=== PATIENT | female | born 1975 | race Caucasian/White ===

== ENCOUNTER 2016-11-20 15:55 | Emergency (ER) | payer OTHER ==
[2016-11-20] MEDS ORDERED: KETOROLAC TROMETHAMINE INJ/PF 30 MG/1 ML SDV IV ONE (16:56)
--- NOTE | 2016-11-20 17:00 | ER Document Report ---
ED Medical Screen (RME) - General Chief Complaint: Abdominal Pain Stated Complaint: ABDOMINAL PAIN Notes: I briefly seen and evaluated this patient in my role as physician in triage. I have initiated orders based on this initial evaluation. Please see my colleague' s documentation for complete history, physical, management, diagnosis, and ultimate disposition. My brief evaluation: Patient presents from her doctor's office for evaluation for lower abdominal tenderness. The patient says that the symptoms have been there for about 6 months but have worsened and now she has stabbing pains in the right lower quadrant. The patient said her doctor evaluated her abdomen said she needed to go to the hospital for imaging. The patient indicates that her doctor told her that she consult with the emergency department. On exam, patient alert and oriented chest signs stable patient is afebrile nontoxic appearing. Chest clear and equal bilaterally. Heart rate normal no murmurs. Abdomen is soft but there is tenderness in the entire lower abdomen. Bowel sounds are present. Medical decision making: Patient is status post hysterectomy with lower abdominal pain chronic for 6 months with increasing severity and no prior workup. Sent by her doctor today for imaging. We will initiate abdominal pain workup including CT. TRAVEL OUTSIDE OF THE [place] IN LAST 30 DAYS: No - Related Data Allergies/Adverse Reactions: No Known Allergies Allergy (Unverified 11/20/16 16:52) Past Medical History Renal/ Medical History: Denies: Hx Peritoneal Dialysis Physical Exam - Vital signs Vitals: Temp Pulse Resp BP Pulse Ox 99.1 F 89 18 119/81 97 11/20/16 16:03 11/20/16 16:03 11/20/16 16:03 11/20/16 16:03 11/20/16 16:03 Course - Vital Signs Vital signs: Temp Pulse Resp BP Pulse Ox 99.1 F 89 18 119/81 97 11/20/16 16:03 11/20/16 16:03 11/20/16 16:03 11/20/16 16:03 11/20/16 16:03
[2016-11-20 17:31] LABS: ABSOLUTE EOSINOPHILS # (AUTO) 0.1 10^3/uL (0.0-0.6); ABSOLUTE LYMPHOCYTES (AUTO) 3.2 10^3/uL (0.5-4.7); ABSOLUTE MONOCYTES (AUTO) 0.9 10^3/uL (0.1-1.4); ABSOLUTE NEUT (AUTO) 3.3 10^3/uL (1.7-8.2); BASOPHILS % (AUTO) 0.6 % (0-2); EOSINOPHILS % (AUTO) 0.8 % (0-6); HEMATOCRIT 38.3 % (36.0-47.0); HEMOGLOBIN 13.3 g/dL (12.0-15.5); HGB HCT DIFFERENCE 1.6; LYMPHOCYTES % (AUTO) 42.8 % (13-45); MEAN CORPUSCULAR HEMOGLOBIN 33.1 pg (27.0-33.4); MEAN CORPUSCULAR HGB CONC 34.6 g/dL (32.0-36.0); MEAN CORPUSCULAR VOLUME 96 fl (80-97); MONOCYTES % (AUTO) 12.1 % (3-13); RED BLOOD COUNT 4.01 10^6/uL (3.72-5.28); SEGMENTED NEUTROPHILS % (AUTO) 43.7 % (42-78); WHITE BLOOD COUNT 7.5 10^3/uL (4.0-10.5)
[2016-11-20 17:35] LABS: APPEARANCE,URINE CLEAR; BILIRUBIN,URINE NEGATIVE (NEGATIVE); GLUCOSE, URINE NEGATIVE (NEGATIVE); KETONES,URINE 20 mg/dL (NEGATIVE); LEUKOCYTE ESTERASE,URINE SMALL (NEGATIVE); NITRITE,URINE NEGATIVE (NEGATIVE); PROTEIN,URINE NEGATIVE (NEGATIVE); URINE SPECIFIC GRAVITY 1.012; UROBILINOGEN,URINE NEGATIVE mg/dL (<2.0)
[2016-11-20 17:50] LABS: ALANINE AMINOTRANSFERASE 41 U/L (9-52); ALBUMIN 4.7 g/dL (3.5-5.0); ALKALINE PHOSPHATASE 81 U/L (38-126); ANION GAP 12 (5-19); ASPARTATE AMINO TRANSFERASE 37 U/L (14-36); BILIRUBIN,DIRECT 0.3 mg/dL (0.0-0.4); BLOOD UREA NITROGEN 12 mg/dL (7-20); CALCIUM 9.7 mg/dL (8.4-10.2); CARBON DIOXIDE 28 mmol/L (22-30); CHLORIDE 101 mmol/L (98-107); CREATININE RESULT 0.72 mg/dL (0.52-1.25); GLUCOSE 122 mg/dL (75-110); POTASSIUM 3.8 mmol/L (3.6-5.0); TOTAL PROTEIN 7.5 g/dL (6.3-8.2)
--- NOTE | 2016-11-20 19:53 | ER Document Report ---
ED General - General Chief Complaint: Abdominal Pain Stated Complaint: ABDOMINAL PAIN Mode of Arrival: Ambulatory Information source: Patient Notes: 41-year-old female history of IBS presents with complaints of chronic abdominal pain patient denies any fevers or new concerns. Patient notes this is the first time she was seen by her new primary care physician and was sent in for evaluation. TRAVEL OUTSIDE OF THE [place] IN LAST 30 DAYS: No - HPI Onset: Other Onset/Duration: Persistent Quality of pain: Cramping Severity: Mild Pain Level: 1 Associated symptoms: Other Exacerbated by: Denies Relieved by: Denies Similar symptoms previously: Yes Recently seen / treated by doctor: Yes - Related Data Allergies/Adverse Reactions: No Known Allergies Allergy (Unverified 11/20/16 16:52) Past Medical History - Social History Smoking Status: Never Smoker Cigarette use (# per day): No Chew tobacco use (# tins/day): No Smoking Education Provided: No Frequency of alcohol use: None Drug Abuse: None Family History: Reviewed & Not Pertinent Patient has suicidal ideation: No Patient has homicidal ideation: No Renal/ Medical History: Denies: Hx Peritoneal Dialysis Review of Systems - Review of Systems Notes: REVIEW OF SYSTEMS: CONSTITUTIONAL : Denies fever, chills, or sweats. Denies recent illness. EENT: Denies eye, ear, throat, or mouth pain or symptoms. Denies nasal or sinus congestion or discharge. Denies throat, tongue, or mouth swelling or difficulty swallowing. CARDIOVASCULAR: Denies chest pain. Denies palpitations or racing or irregular heart beat. Denies ankle edema. RESPIRATORY: Denies cough, cold, or chest congestion. Denies shortness of breath, difficulty breathing, or wheezing. GASTROINTESTINAL: Admits to abdominal pain GENITOURINARY: Denies difficulty urinating, painful urination, burning, frequency, blood in urine, or discharge. FEMALE GENITOURINARY: Denies vaginal bleeding, heavy or abnormal periods, irregular periods. Denies vaginal discharge or odor. MUSCULOSKELETAL: Denies back or neck pain or stiffness. Denies joint pain or swelling. SKIN: Denies rash, lesions or sores. HEMATOLOGIC : Denies easy bruising or bleeding. LYMPHATIC: Denies swollen, enlarged glands. NEUROLOGICAL: Denies confusion or altered mental status. Denies passing out or loss of consciousness. Denies dizziness or lightheadedness. Denies headache. Denies weakness or paralysis or loss of use of either side. Denies problems with gait or speech. Denies sensory loss, numbness, or tingling. Denies seizures. PSYCHIATRIC: Denies anxiety or stress. Denies depression, suicidal ideation, or homicidal ideation. ALL OTHER SYSTEMS REVIEWED AND NEGATIVE. Dictation was performed using [employer] voice recognition software PHYSICAL EXAMINATION: GENERAL: Well-appearing, well-nourished and in no acute distress. HEAD: Atraumatic, normocephalic. EYES: Pupils equal round and reactive to light, extraocular movements intact, conjunctiva are normal. ENT: Nares patent, oropharynx clear without exudates. Moist mucous membranes. NECK: Normal range of motion, supple without lymphadenopathy LUNGS: Breath sounds clear to auscultation bilaterally and equal. No wheezes rales or rhonchi. HEART: Regular rate and rhythm without murmurs ABDOMEN: Soft, mildly tender in the suprapubic bilateral lower quadrants no rebound or guarding Female : deferred Musculoskeletal: Normal range of motion, no pitting or edema. No cyanosis. NEUROLOGICAL: Cranial nerves grossly intact. Normal speech, normal gait. Normal sensory, motor exams PSYCH: Normal mood, normal affect. SKIN: Warm, Dry, normal turgor, no rashes or lesions noted. Physical Exam - Vital signs Vitals: Temp Pulse Resp BP Pulse Ox 99.1 F 89 18 119/81 97 11/20/16 16:03 11/20/16 16:03 11/20/16 16:03 11/20/16 16:03 11/20/16 16:03 Course - Re-evaluation Re-evalutation: 11/20/16 19:52 Patient herself is very aware of her chronic pain, states that this is similar to all her previous pains, denies any new symptoms. Patient herself is unsure why she was sent in. Nonetheless evaluation was performed i was noted patient will be discharged home on bentyl. possible bursitis is noted patient will be given orth[facility] her request After performing a Medical Screening Examination, I estimate there is LOW risk for ACUTE APPENDICITIS, BOWEL OBSTRUCTION, ACUTE CHOLECYSTITIS, PERFORATED DIVERTICULITIS, INCARCERATED HERNIA, PANCREATITIS, PELVIC INFLAMMATORY DISEASE, PERFORATED ULCER, ECTOPIC , or TUBO-OVARIAN ABSCESS, thus I consider the discharge disposition reasonable. Also, there is no evidence or peritonitis , sepsis, or toxicity. I have reevaluated this patient multiple times and no significant life threatening changes are noted. The patient and I have discussed the diagnosis and risks, and we agree with discharging home with close follow-up with the understanding that symptoms and presentations can change. We also discussed returning to the Emergency Department immediately if new or worsening symptoms occur. We have discussed the symptoms which are most concerning (e.g., bloody stool, fever, changing or worsening pain, vomiting) that necessitate immediate return. - Vital Signs Vital signs: Temp Pulse Resp BP Pulse Ox 99.1 F 89 18 119/81 97 11/20/16 16:03 11/20/16 16:03 11/20/16 16:03 11/20/16 16:03 11/20/16 16:03 - Laboratory Result Diagrams: 11/20/16 17:15 11/20/16 17:15 Laboratory results interpreted by me: 11/20/16 11/20/16 17:15 17:15 Glucose 122 H AST 37 H Urine Ketones 20 H Ur Leukocyte Esterase SMALL H - Diagnostic Test Radiology reviewed: Image reviewed, Reports reviewed Discharge - Discharge Clinical Impression: adventitial bursitis Abdominal pain Qualifiers: Abdominal location: lower abdomen, unspecified Qualified Code(s): R10.30 - Lower abdominal pain, unspecified IBS (irritable bowel syndrome) Qualifiers: Irritable bowel syndrome type: with diarrhea Qualified Code(s): K58.0 - Irritable bowel syndrome with diarrhea Condition: Stable Disposition: HOME, SELF-CARE Instructions: Abdominal Pain ([facility]) Additional Instructions: Follow up with your physician tomorrow for further care or return to the ED IMMEDIATELY if symptoms worsen or new concerns occur. If you cannot afford to follow up with your primary care physician a list of low cost clinics have been provided at the end of your discharge papers as well. Prescriptions: Dicyclomine HCl [Bentyl 20 mg Tablet] 20 mg PO QID #40 tablet
[2016-11-20 20:04] VITALS: BP 111/75
== END 2016-11-20 20:04 | disposition home or self-care (01) ==
LOC: ER 15:55
DX: M71.8 Other specified bursopathies (principal); K58.0 Irritable bowel syndrome with diarrhea; G89.29 Other chronic pain; R10.30 Lower abdominal pain, unspecified
CPT/HCPCS: 99284; 96374; 36415; 83690; 85025; 80053; 81001; 74177; J1885

== ENCOUNTER → 2017-09-10 | Outpatient (CLI) | payer OTHER ==
--- NOTE | 2017-09-28 17:00 | WOMENS IMAGING REPORT ---
EXAM DESCRIPTION: BILAT SCREENING MAMMO W/CAD COMPLETED DATE/TIME: 09/10/2017 7:27 am REASON FOR STUDY: SCREENING MAMMO Z12.31 ENCNTR SCREEN MAMMOGRAM FOR MALIGNANT NEOPLASM OF MONIQUE COMPARISON: No previous TECHNIQUE: Standard craniocaudal and mediolateral oblique views of each breast recorded using digita l acquisition. LIMITATIONS: None. FINDINGS: No masses, calcifications or architectural distortion. No areas of suspicion. Read with the assistance of CAD. .[facility] - R2 Cenova Version 1.3 .[facility] - R2 Cenova Version 1.[address] - R2 Cenova Version 2.4 .[facility] - R2 Cenova Version 2.4 .[facility] - R2 Drupal Programmer Version 9.2 IMPRESSION: NORMAL MAMMOGRAM. BIRADS 1. BREAST DENSITY: d. The breasts are extremely dense, which lowers the sensitivity of mammography. BIRAD: 1 NEGATIVE RECOMMENDATION: ROUTINE SCREENING Please continue yearly screening in September 2018. Please consider bilateral screening tomosynthesis given extremely dense fibroglandular tissue COMMENT: The patient has been notified of the results by letter per [place] requirements. Additional no tification policies are in place for contacting patient with suspicious or incomplete findings. Quality ID #[id number]: The [employer] recommends an annual screening mammogram for women aged 40 years or over. This facility utilizes a reminder system to ensure that all patients receive reminder letters, and/or direct phone calls for appointments. This includes reminders for routine scr eening mammograms, diagnostic mammograms, or other Breast Imaging Interventions when appropriate. Th is patient will be placed in the appropriate reminder system. The [employer] (ACR) has developed recommendations for screening MRI of the breast s in certain patient populations, to be used in conjunction with mammography. Breast MRI surveillanc e may be appropriate for women with more than 20% lifetime risk of developing breast cancer as deter mined by genetic testing, significant family history of the disease, or history of mantle radiation f or Hodgkins Disease. ACR Practice Guidelines 2008. TECHNICAL DOCUMENTATION: FINDING NUMBER: (1) ASSESSMENT: (1) JOB ID: [id number] [employer]- All Rights Reserved
== END ==
LOC: WI 07:07
PROVIDERS: ATTEND Family Medicine
DX: Z12.31 Encounter for screening mammogram for malignant neoplasm of breast (principal)
CPT/HCPCS: 77067

== ENCOUNTER 2018-12-19 08:02 | Emergency (ER) | payer OTHER, MEDICARE ==
[2018-12-19] MEDS ORDERED: METHYLPREDNISOLONE INJ 125 MG/2 ML SDV ONE (08:12)
[2018-12-19] MEDS ORDERED: EPINEPHRINE INJ/PF 1 MG/1 ML AMPULE ONE (08:12)
[2018-12-19] MEDS ORDERED: FAMOTIDINE INJ/PF 20 MG/2 ML SDV IV ONE (08:12)
[2018-12-19] MEDS ORDERED: DIPHENHYDRAMINE HCL 50 MG/ML VIAL ONE (08:12)
[2018-12-19] MEDS ORDERED: DIPHENHYDRAMINE HCL 50 MG/ML VIAL IM ONE (08:14)
[2018-12-19] MEDS ORDERED: PREDNISONE 20 MG TABLET PO ONE (08:14)
[2018-12-19] MEDS ORDERED: LORAZEPAM INJ 2 MG/1 ML VIAL IM ONE (08:14)
[2018-12-19] MEDS ORDERED: FAMOTIDINE 20 MG TABLET PO ONE (08:14)
--- NOTE | 2018-12-19 08:19 | ER Document Report ---
ED Allergic Reaction - General Chief Complaint: Allergic Reaction Stated Complaint: POSSIBLE ALLERGIC REACTION Time Seen by Provider: 12/19/18 08:14 Primary Care Provider: AMAN ARNETT DO [NO LOCAL MD] - Follow up as needed TRAVEL OUTSIDE OF THE [place] IN LAST 30 DAYS: No - HPI Notes: Change in rash over bilateral lower extrema extending up bilateral legs. Patient was walking her dog this morning got bit by something on the dorsal aspect of her right foot had increasing swelling and burning at the sending itching and rash. Patient denies any difficulty breathing, throat swelling, difficulty falling. Patient does suffer from anxiety and think she is having a panic attack but she hates itching so much. - Related Data Allergies/Adverse Reactions: No Known Allergies Allergy (Unverified 11/20/16 16:52) Past Medical History - Social History Smoking Status: Unknown if Ever Smoked Family History: Reviewed & Not Pertinent Renal/ Medical History: Denies: Hx Peritoneal Dialysis Review of Systems - Review of Systems Notes: REVIEW OF SYSTEMS: CONSTITUTIONAL: -fevers, -chills EENT: -eye pain, -difficulty swallowing, -nasal congestion CARDIOVASCULAR: -chest pain, -syncope. RESPIRATORY: -cough, -SOB GASTROINTESTINAL: -abdominal pain, -nausea, -vomiting, -diarrhea GENITOURINARY: -dysuria, -hematuria MUSCULOSKELETAL: -back pain, -neck pain SKIN: Urticaria bilateral lower extremities HEMATOLOGIC: -easy bruising or bleeding. LYMPHATIC: -swollen, enlarged glands. NEUROLOGICAL: -altered mental status or loss of consciousness, -headache, -margarita rologic symptoms PSYCHIATRIC: -anxiety, -depression. ALL OTHER SYSTEMS REVIEWED AND NEGATIVE. Physical Exam - Vital signs Vitals: Temp Pulse Resp BP Pulse Ox 97.7 F 115 H 24 H 96/54 L 96 12/19/18 08:07 12/19/18 08:07 12/19/18 08:07 12/19/18 08:07 12/19/18 08:07 - Notes Notes: PHYSICAL EXAMINATION: GENERAL: Well-appearing, well-nourished and in no acute distress. HEAD: Atraumatic, normocephalic. EYES: Pupils equal round and reactive to light, extraocular movements intact, sclera anicteric, conjunctiva are normal. ENT: nares patent, oropharynx clear without exudates. Moist mucous membranes. No tongue swelling, no floor of mouth swelling NECK: Normal range of motion, supple without lymphadenopathy LUNGS: Breath sounds clear to auscultation bilaterally and equal. No wheezes rales or rhonchi. HEART: Regular rate and rhythm without murmurs ABDOMEN: Soft, nontender, normoactive bowel sounds. No guarding, no rebound. No masses appreciated. EXTREMITIES: Normal range of motion, no pitting or edema. No cyanosis. NEUROLOGICAL: Cranial nerves grossly intact. Normal speech, normal gait. Normal sensory and motor exams. PSYCH: Normal mood, normal affect. SKIN: Urticaria bilateral lower extremely. Course - Re-evaluation Re-evalutation: 12/19/18 08:19 Well-appearing female no apparent allergic reaction. Will be given diphenhydramine, famotidine, oral steroids. Patient also given intramuscular Ativan for her anxiety. 12/19/18 09:02 Patient feeling much improved anxiety better no more itching rash receding. Be discharged with more oral steroids instructions for diphenhydramine - Vital Signs Vital signs: Temp Pulse Resp BP Pulse Ox 97.7 F 115 H 24 H 96/54 L 96 12/19/18 08:07 12/19/18 08:07 12/19/18 08:07 12/19/18 08:07 12/19/18 08:07 Discharge - Discharge Clinical Impression: Allergic reaction Qualifiers: Encounter type: initial encounter Qualified Code(s): T78.40XA - Allergy, unspecified, initial encounter Condition: Stable Disposition: HOME, SELF-CARE Instructions: Acute Allergic Reaction ([facility]) Prescriptions: Epinephrine [Epipen Jr 0.15 mg/0.3 mL AutoInject] 1 ea IM ASDIR PRN #1 autoi njector PRN Reason: Epinephrine [Epipen 2-Carlos] 0.3 mg IJ Q4H #1 auto.injct Prednisone [Deltasone 20 mg Tablet] 3 tab PO DAILY 3 Days tablet Prednisone [Deltasone 20 mg Tablet] 3 tab PO DAILY 5 Days tablet Prednisone [Deltasone 20 mg Tablet] 1 tab PO DAILY 3 Days tablet Referrals: AMAN ARNETT DO [NO LOCAL MD] - Follow up as needed
[2018-12-19 09:22] VITALS: BP 102/81
== END 2018-12-19 09:30 | disposition home or self-care (01) ==
LOC: ER 08:02
DX: T78.40XA Allergy, unspecified, initial encounter (principal); L50.9 Urticaria, unspecified; X58.XXXA Exposure to other specified factors, initial encounter; F41.9 Anxiety disorder, unspecified
CPT/HCPCS: 99283; 96372; J1200; J2060; J7512

== ENCOUNTER → 2018-12-30 | Outpatient (CLI) | payer OTHER, MEDICARE ==
--- NOTE | 2018-12-30 08:33 | RADIOLOGY REPORT (SQ) ---
EXAM DESCRIPTION: C SP 4 OR 5 VIEWS COMPLETED DATE/TIME: 12/30/2018 8:12 am REASON FOR STUDY: CERVICALGIA M54.2 CERVICALGIA COMPARISON: None. NUMBER OF VIEWS: Five views. TECHNIQUE: AP, lateral, obliques and odontoid radiographic images acquired of the cervical spine. LIMITATIONS: None. FINDINGS: MINERALIZATION: Normal. ALIGNMENT: Loss of the normal lordotic curvature likely secondary to muscle spasm. Anatomic. VERTEBRAE: Vertebral bodies of normal height. DISCS: No significant osteophytes or sclerosis. Disc height maintained. FORAMINA: No osteophytes or foraminal narrowing. LATERAL AND POSTERIOR ELEMENTS: Facets, lateral masses and spinous processes without significant find ings. HARDWARE: None in the spine. SOFT TISSUES: No masses or calcifications. Lung apices clear. OTHER: No other significant finding. IMPRESSION: 1. NO SIGNIFICANT RADIOGRAPHIC FINDING IN THE CERVICAL SPINE. TECHNICAL DOCUMENTATION: JOB ID: [id number] [employer]- All Rights Reserved Reading location - IP/workstation name: [email or web address]
== END ==
LOC: OD 07:58
PROVIDERS: ATTEND Physician Assistant
DX: M54.2 Cervicalgia (principal)
CPT/HCPCS: 72050

== ENCOUNTER 2019-02-15 14:35 | Emergency (ER) | payer MEDICARE ==
[2019-02-15] MEDS ORDERED: METHYLPREDNISOLONE INJ 125 MG/2 ML SDV ONE (14:38)
[2019-02-15] MEDS ORDERED: DIPHENHYDRAMINE HCL 50 MG/ML VIAL ONE (14:38)
[2019-02-15] MEDS ORDERED: EPINEPHRINE INJ/PF 1 MG/1 ML AMPULE ONE ×2 (14:38→14:40)
[2019-02-15] MEDS ORDERED: FAMOTIDINE INJ/PF 20 MG/2 ML SDV IV ONE (14:39)
--- NOTE | 2019-02-15 14:58 | ER Document Report ---
ED Allergic Reaction - General Chief Complaint: Allergic Reaction Stated Complaint: ALLERGIC REACTION Time Seen by Provider: 02/15/19 14:53 Primary Care Provider: SOURAV GARCÍA PA [Primary Care Provider] - Follow up as needed TRAVEL OUTSIDE OF THE [place] IN LAST 30 DAYS: No - HPI Notes: Patient is a 43-year-old female that presents to the emergency department for chief complaint of allergic reaction. Patient states that 15 minutes prior to coming in the emergency room she was stung by an insect on her right hand. She states she has had a severe allergic reaction to fire ant stings a few months ago but that was the first time she ever had severe allergies. She was prescribed an EpiPen but did not have it on her. Patient came directly to the emergency room and has not taken any medications prior to arrival. She reports itching and diffuse red rash. She also reports tongue swelling and a scratchy feeling in the back of her throat. She does states she feels like she is breathing normally and denies any lightheadedness or syncopal episodes. Past Medical History: Anxiety Past Surgical History: Reviewed in chart Social History: Denies drugs alcohol and tobacco Family History: Reviewed and noncontributory for presenting illness Allergies: Reviewed, see documented allergy list. REVIEW OF SYSTEMS: CONSTITUTIONAL : No fever No chills No diaphoresis No recent illness EENT: No vision changes No congestion sore throat Tongue edema CARDIOVASCULAR: No chest pain No palpitations RESPIRATORY: No shortness of breath No cough No difficulty breathing GASTROINTESTINAL: No abdominal pain No nausea No vomiting No diarrhea GENITOURINARY: No dysuria No hematuria No difficulty urinating MUSCULOSKELETAL: No back pain No leg pain No arm pain SKIN: rashes No lesions LYMPHATIC: No swollen, enlarged glands. NEUROLOGICAL: No lightheadedness No headache No weakness No paresthesias PSYCHIATRIC: No anxiety No depression PHYSICAL EXAMINATION: Vital signs reviewed, nursing noted reviewed. GENERAL: Well-appearing, well-nourished and in no acute distress. HEAD: Atraumatic, normocephalic. EYES: Eyes appear normal, extraocular movements intact, sclera anicteric, conjunctiva are normal. ENT: Lingular edema diffusely. Uvular edema. Nares patent, oropharynx clear without exudates. Moist mucous membranes. NECK: Normal range of motion, supple without lymphadenopathy LUNGS: No stridor. Breath sounds clear to auscultation bilaterally and equal. No wheezes rales or rhonchi. HEART: Tachycardic rate and regular rhythm without murmurs ABDOMEN: Soft, nontender, normoactive bowel sounds. No rebound, guarding, or rigidity. No masses appreciated. EXTREMITIES: Nontender, good range of motion, no pitting or edema. NEUROLOGICAL: No focal neurological deficits. Moves all extremities spontaneously Motor and sensory grossly intact on exam. PSYCH: Anxious mood, normal affect. SKIN: Warm, Dry, normal turgor, diffuse erythematous rash over entire body with sparing on the anterior chest and upper back - Related Data Allergies/Adverse Reactions: bee venom protein (honey bee) Allergy (Verified 02/15/19 14:41) Past Medical History - Social History Smoking Status: Never Smoker Family History: Reviewed & Not Pertinent Renal/ Medical History: Denies: Hx Peritoneal Dialysis Psychiatric Medical History: Reports: Hx Bipolar Disorder, Hx Depression Physical Exam - Vital signs Vitals: Pulse Ox 93 02/15/19 14:40 Course - Re-evaluation Re-evalutation: 02/15/19 14:56 Vitals reviewed. Nursing notes reviewed. Patient is experiencing acute anaphylactic reaction with lingular and uvular edema. She was given IM epinephrine, Benadryl, Solu-Medrol, and Pepcid which rapidly improved her symptoms. Patient currently stating she is feeling better. She is on telemetry monitoring. Patient symptoms will continue to be monitored in the ED. 02/15/19 16:55 Patient reevaluated and has had complete resolution of her symptoms. She has had not had any recurrence since her first dose of epinephrine. Patient will continue to take Benadryl at home as needed for itching. She does have an EpiPen at home which she will keep on her at all times. She was again instructe d on the use of the EpiPen and to return to the emergency room if she is requiring it. Patient's mother is at bedside currently and will be taking patient home and watching her throughout this evening. Patient will follow with her PCP as needed. She is stable for discharge. - Vital Signs Vital signs: Temp Pulse Resp BP Pulse Ox 98.3 F 22 H 119/84 98 02/15/19 15:00 02/15/19 14:46 02/15/19 14:46 02/15/19 14:46 Critical Care Note - Critical Care Note Total time excluding time spent on procedures (mins): 40 Comments: Critical care time 40 exclusive from separate billable procedures for a patient requiring complex medical decision making, and high potential for clinical deterioration. Time spent obtaining history from patient or surrogate, discussions with consultants, development of treatment plan with patient or surrogate, evaluation of patient's response to treatment, examination of patient, ordering and performing treatments and interventions, ordering and review of laboratory studies, re-evaluation of patient's condition, ordering and review of radiographic studies and review of old charts Discharge - Discharge Clinical Impression: Anaphylactic reaction Qualifiers: Encounter type: initial encounter Qualified Code(s): T78.2XXA - Anaphylactic shock, unspecified, initial encounter Insect sting Qualifiers: Encounter type: initial encounter Injury intent: accidental or unintentional Qualified Code(s): T63.481A - Toxic effect of venom of other arthropod, accidental (unintentional), initial encounter Condition: Stable Disposition: HOME, SELF-CARE Instructions: Acute Allergic Reaction ([facility]) Additional Instructions: Please return to the emergency department if you have any worsening, or concern of your symptoms. Please return to the emergency department if you develop chest pain, difficulty breathing, severe abdominal pain, or ongoing vomiting. Please follow-up with your primary care physician in 2-3 days and any other recommended physicians. If prescribed, take all medications as directed. If you have any questions or concerns do not hesitate to return the emergency department for evaluation. Take Benadryl at home as directed on the label for itching If you have any recurrence of tongue swelling, sore throat or throat swelling, shortness of breath or lightheadedness use your EpiPen and return to the emergency room. Referrals: SOURAV GARCÍA PA [Primary Care Provider] - Follow up as needed
[2019-02-15 17:11] VITALS: BP 125/68
== END 2019-02-15 17:11 | disposition home or self-care (01) ==
LOC: ER 14:35
DX: T78.2XXA Anaphylactic shock, unspecified, initial encounter (principal); T63.481A Toxic effect of venom of other arthropod, accidental (unintentional), initial encounter; R21 Rash and other nonspecific skin eruption; X58.XXXA Exposure to other specified factors, initial encounter
CPT/HCPCS: 99291; 96372; 96374; 96375; J1200; J0171; J2930; S0028

== ENCOUNTER 2020-05-14 11:31 | Emergency (ER) | payer MEDICARE ==
[2020-05-14 11:50] VITALS: BP 99/73
--- NOTE | 2020-05-14 12:35 | ER Document Report ---
ED Medical Screen (RME) - General Chief Complaint: Chest Pain Stated Complaint: CHEST PAIN Time Seen by Provider: 05/14/20 12:31 Primary Care Provider: SOURAV GARCÍA PA [Primary Care Provider] - Follow up as needed Mode of Arrival: Ambulatory Information source: Patient Notes: 45-year-old female presented to ED for chest pain to left side of her chest since Wednesday. She states she [facility] because [facility]. She states she is getting a referral to cardiology. She states she cannot wait to get the referral because it takes a while to get a referral from [facility]. She is continuing to have pain. She states she also has panic attacks. She states the pain goes up to the left ear and down to the left fingers. It is very hard to take a deep breath. 4/5 pain at this time. We will get blood chest x-ray and have seen by another provider. I have greeted and performed a rapid initial assessment of this patient. A co mprehensive ED assessment and evaluation of the patient, analysis of test results and completion of medical decision making process will be conducted by an additional ED providers. TRAVEL OUTSIDE OF THE [place] IN LAST 30 DAYS: No - Related Data Allergies/Adverse Reactions: bee venom protein (honey bee) Allergy (Verified 02/15/19 14:41) Past Medical History Renal/ Medical History: Denies: Hx Peritoneal Dialysis Psychiatric Medical History: Reports: Hx Bipolar Disorder, Hx Depression Physical Exam - Vital signs Vitals: Temp Pulse Resp BP Pulse Ox 98.3 F 72 16 99/73 L 100 05/14/20 11:48 05/14/20 11:48 05/14/20 11:48 05/14/20 11:48 05/14/20 11:48 Course - Vital Signs Vital signs: Temp Pulse Resp BP Pulse Ox 98.3 F 72 16 99/73 L 100 05/14/20 11:48 05/14/20 11:48 05/14/20 11:48 05/14/20 11:48 05/14/20 11:48 Doctor's Discharge - Discharge Referrals: SOURAV GARCÍA PA [Primary Care Provider] - Follow up as needed
[2020-05-14 13:02] LABS: ABSOLUTE EOSINOPHILS # (AUTO) 0.1 10^3/uL (0.0-0.6); ABSOLUTE LYMPHOCYTES (AUTO) 2.8 10^3/uL (0.5-4.7); ABSOLUTE MONOCYTES (AUTO) 0.7 10^3/uL (0.1-1.4); ABSOLUTE NEUT (AUTO) 2.1 10^3/uL (1.7-8.2); BASOPHILS % (AUTO) 0.6 % (0-2); EOSINOPHILS % (AUTO) 2.6 % (0-6); HEMATOCRIT 41.2 % (36.0-47.0); HEMOGLOBIN 14.6 g/dL (12.0-15.5); LYMPHOCYTES % (AUTO) 48.2 % (13-45); MEAN CORPUSCULAR HEMOGLOBIN 33.1 pg (27.0-33.4); MEAN CORPUSCULAR HGB CONC 35.4 g/dL (32.0-36.0); MEAN CORPUSCULAR VOLUME 93 fl (80-97); MONOCYTES % (AUTO) 12.1 % (3-13); PLATELET COUNT 303 10^3/uL (150-450); RED BLOOD COUNT 4.41 10^6/uL (3.72-5.28); RED CELL DISTRIBUTION WIDTH 13.9 % (11.5-14.0); SEGMENTED NEUTROPHILS % (AUTO) 36.5 % (42-78); TOTAL CELLS COUNTED % (AUTO) 100 %; WHITE BLOOD COUNT 5.8 10^3/uL (4.0-10.5)
[2020-05-14 13:08] LABS: APPEARANCE,URINE CLOUDY; BILIRUBIN,URINE NEGATIVE (NEGATIVE); COLOR,URINE YELLOW; GLUCOSE, URINE NEGATIVE (NEGATIVE); KETONES,URINE NEGATIVE (NEGATIVE); LEUKOCYTE ESTERASE,URINE SMALL (NEGATIVE); NITRITE,URINE NEGATIVE (NEGATIVE); PROTEIN,URINE 30 mg/dL (NEGATIVE); URINE SPECIFIC GRAVITY 1.019; UROBILINOGEN,URINE NEGATIVE mg/dL (<2.0)
[2020-05-14 13:10] LABS: INTERNATIONAL RATION (INR) 0.97; PROTHROMBIN TIME 13.1 SEC (11.4-15.4)
--- NOTE | 2020-05-14 13:45 | RADIOLOGY REPORT (SQ) ---
EXAM DESCRIPTION: CHEST 2 VIEWS IMAGES COMPLETED DATE/TIME: 05/14/2020 1:30 pm REASON FOR STUDY: chest pain COMPARISON: None. TECHNIQUE: Frontal and lateral radiographic views of the chest acquired. NUMBER OF VIEWS: Two view. LIMITATIONS: None. FINDINGS: LUNGS AND PLEURA: No pneumothorax. No consolidation or pleural effusion. MEDIASTINUM AND HILAR STRUCTURES: No contour abnormalities. HEART AND VASCULAR STRUCTURES: Heart normal size. BONES: No acute findings. HARDWARE: None in the chest. OTHER: No other significant finding. IMPRESSION: NO ACUTE FINDINGS. TECHNICAL DOCUMENTATION: JOB ID: [id number] [id number] 2010 [employer]- All Rights Reserved Reading location - IP/workstation name: [employer]
--- NOTE | 2020-05-14 15:43 | ER Document Report ---
Doctor's Note Notes: 05/14/20 15:42 Eloped from department prior to evaluation by physician.
--- NOTE | 2020-05-14 17:46 | EKG REPORT ---
SEVERITY:- BORDERLINE ECG - SINUS RHYTHM PROBABLE LEFT ATRIAL ABNORMALITY : Confirmed by: Elle Ricardo MD 14-May-2020 17:45:37
== END 2020-05-14 14:00 | disposition left against medical advice (07) ==
LOC: ER 11:31
DX: Z53.20 Procedure and treatment not carried out because of patient's decision for unspecified reasons (principal); R07.9 Chest pain, unspecified; H92.02 Otalgia, left ear; M79.645 Pain in left finger(s)
CPT/HCPCS: 36415; 71046; 81001; 82550; 83690; 83735; 84443; 84484; 84703; 85025; 85610; 93005; 93010; 99281